=== PATIENT | female | born 1975 | race Caucasian/White ===

== ENCOUNTER 2019-09-27 09:54 | Outpatient (CLI) | payer OTHER ==
[~2019-09-27 09:54] MED LIST: PRENATAL TABLE1 EACH PO; VALTREX1000 MG PO
== END 2019-09-27 15:29 | disposition home or self-care (01) ==
LOC: NUCLEAR 09:54
DX: E04.1 Nontoxic single thyroid nodule (principal)
CPT/HCPCS: 78013; A9512

== ENCOUNTER 2021-05-17 08:00 | Outpatient (CLI) | payer OTHER | END 2021-05-17 08:30 | disposition home or self-care (01) | LOC: PPH VACUNA 08:00 | DX: Z23 Encounter for immunization (principal) ==

== ENCOUNTER 2021-06-07 08:00 | Outpatient (CLI) | payer OTHER | END 2021-06-07 08:30 | disposition home or self-care (01) | LOC: PPH VACUNA 08:00 | DX: Z23 Encounter for immunization (principal) ==

== ENCOUNTER 2021-11-28 08:00 | Outpatient (CLI) | payer OTHER | END 2021-11-28 08:30 | disposition home or self-care (01) | LOC: PPH VACUNA 08:00 | PROVIDERS: ATTEND Emergency Medicine Pediatric Emergency Medicine | DX: Z23 Encounter for immunization (principal) ==